=== PATIENT | male | born 1995 | race Caucasian/White ===

== ENCOUNTER 2018-05-17 08:26 | Day surgery (SDC) | payer BC, OTHER ==
[~2018-05-17] VITALS: Ht 185.4 cm; Wt 87.1 kg
[2018-05-17] VITALS (7 sets, daily range): BP systolic 135–150; BP diastolic 79–90
--- NOTE | ~2018-05-17 | O ---
[facility] [address] OPERATIVE REPORT Name: PHYLICIA REYES Room #: 150-5 [facility]..#: [id number] Admission: 05/17/18 Attend Phys: Juan Miguel Thomas MD Discharge: Date of : 89 Report #: [id number] THIS REPORT FOR: //name// CC: Juan Miguel Shields MD DATE OF SERVICE: 05/17/2018 PREOPERATIVE DIAGNOSES: Cholecystitis with cholelithiasis. POSTOPERATIVE DIAGNOSES: Cholecystitis with cholelithiasis. PROCEDURES PERFORMED: Laparoscopic cholecystectomy with cholangiogram. SURGEON: Juan Miguel Thomas MD. ANESTHESIA: General anesthesia. COMPLICATIONS: None. ESTIMATED BLOOD LOSS: 5 mL. FINDINGS: The gallbladder had adhesions over it, consistent with chronic inflammation. The gallbladder was elongated particularly in the proximal gallbladder. This accommodated for the large amount of stones that were in the gallbladder. The common bile duct was seen on cholangiogram. There was no filling defect in the common duct. Initial air bubble was flushed through. There was contrast that extravasated at the cannulation site. I was not able to get a very good seal. This led to good filling of the common duct, but not much dye spilled into the duodenum. No harm to the cholangiogram catheter identified in the cystic duct, no harm to the common duct. PROCEDURE NOTE: With the patient under general anesthesia, abdomen was prepped and draped in sterile fashion. IV antibiotic was administered. Timeout was performed. 0.25% Marcaine was used to anesthetize the skin infraumbilically. A curvilinear incision was made infraumbilically. Fascia was identified. Fascia was then grasped with hemostats and lifted anteriorly. The fascia was opened under visualization, 0 Vicryl suture placed on the fascia for retraction. With the fascia opened, 0 Vicryl stay suture placed on the fascia edges. The Veress needle was then placed through the peritoneum. Abdominal cavity was insufflated by CO2. After creating pneumoperitoneum, an 11-mm trocar was placed under visualization. Abdominal contents appeared normal. No inguinal hernia. The tip of the appendix was seen and noted to be normal. The two 5-mm trocars were placed in right lower quadrant, another 5 mm trocar in right epigastrium. The patient was placed in the reverse Trendelenburg position, right side tilted up. [address] [address] OPERATIVE REPORT Name: PHYLICIA REYES [id number]: 05/17/18 Attend Phys: Juan Miguel Thomas MD Discharge: Date of : 89 Report #: [id number] The patient's gallbladder was grasped. There is quite a bit of adhesion on the ventral surface of the gallbladder. These adhesions were taken down. When I thought I reached the bottom of the gallbladder, the gallbladder did extend more posteriorly in a pouch. The cystic duct was actually more superficial than this deeper pouch of the gallbladder. This pouch was grasped and then able to be straightened out. The cystic duct was then dissected free. The cystic duct is pretty normal size. Once the cystic duct was free and isolated, clip was placed in junction of cystic duct to the gallbladder. Opening was made in the cystic duct. Cystic duct was milked and there was no stone in the duct. Cholangiogram catheter was placed. I did have difficulty getting the cholangiogram catheter to go in very far likely because of folding in the cystic duct, valves and folds in the cystic duct. A clip was placed to hold the catheter in place. Fluoroscopic cholangiogram was obtained. Initial run, I thought there is an air bubble filling defect that moved and eventually flushed out. I did flush more saline in it, reinject it. Common bile duct filled out pretty well. I did not see any filling defect at this time. Initial run did show flow into the duodenum. Because of the difficulty getting a good seal at the catheter cannulation site, there is quite a bit of dye that extravasated laterally. The cholangiogram catheter was then completed. The catheter was removed. The proximal cystic duct was then clipped x 2 and then divided. There was a strand of tissue that I clipped and then divided. The artery was found underneath this. This is the main artery. This was isolated, clipped x 2 proximally, 1 distally and then divided. There is a small branch posteriorly that I clipped once, divided it with cautery and then, the gallbladder was free from the liver bed. Gallbladder was placed in specimen bag. The bag was pulled through the infraumbilical fascia defect. I did enlarge it to get the part of the gallbladder up into the wound. The gallbladder was opened and a very small amount of bile was suctioned out. Multiple stones were retrieved with Allis clamp, placing into the gallbladder lumen pulling the stones out. Once majority of the gallstones were pulled out, the gallbladder then came out. The bag was then removed. The 11-mm trocar was then replaced. The CO2 was placed. The liver bed was checked, hemostasis excellent, the clips were intact. No bleeding was identified. Initially taking down the adhesion, there was small oozing during the dissection. This area was dry. Irrigation was aspirated out. Trocars then removed. CO2 was evacuated as much as possible. The fascia defect was below the umbilicus, was closed with [id number] 0 Vicryl x 2. Skin was irrigated. Skin was closed with 5-0 PDS. Steri-Strip, Band-Aids applied. The patient tolerated the procedure well. By: [id number] Juan Miguel Thomas MD /nt
--- NOTE | ~2018-05-17 | PATH ---
[facility] [address] [place] [address] PATHOLOGY RPT PROCEDURE Name: PHYLICIA REYES Room #: [place] [facility] [place].#: [id number] Admission: 05/17/18 Date of : 89 Discharge: 05/18/18 Report #: [id number] Path Case #: [id number] [facility] Accession Number: [id number] . 01 Material submitted: . GALLBLADDER . 01 Clinical history: . Cholecystitis with cholelithiasis . 02 Diagnosis: Gallbladder "gallbladder cholecystectomy": - Moderate chronic cholecystitis with cholelithiasis. (SHA:[facility]; 05/20/2018) QTP/05/20/2018 . 02 Electronically signed: . Dago Bagley MD, Pathologist NPI- [id number] . 01 Gross description: . Received in formalin labeled "Phylicia Reyes, gallbladder," is a previously opened gallbladder measuring 9.5 x 3.6 x 1.0 cm in greatest dimensions. The serosal surface is smooth to shaggy, dusky forrester-gonzales and partially fibroadipose-covered in appearance. The mucosa is shaggy and dark gonzales-brown in appearance, measuring 0.1 cm thick. No lesions or polyps are noted grossly. Calculi are present within the specimen container that are multifaceted and yellow-forrester in appearance, ranging from 0.3 to 1.6 cm in maximum dimension. The specimen is submitted representatively in cassette A1, to include the infundibulum, body and fundus. ([facility]; 05/19/2018) XDC/XDC . 02 Pathologist provided ICD-10: K80.10 . 02 CPT . 385115 Performed at: [address], [place] [id number] MD Yfn Charles MD Phone: [phone] Performed at: [address] [id number] MD Alycia Berger MD Phone: [phone]
[~2018-05-17 08:26] MED LIST: AMOXICILLIN/POTASSIU; IBUPROFEN 600600 M1 PO; NASONEX17 GM; SOLODYN45 MG
[2018-05-18 04:31] VITALS: BP 133/60
[2018-05-18 08:00] VITALS: BP 142/75
[2018-05-18] MEDS ORDERED: NORCO 5-325 TA1 EACH PO (12:09)
[2018-05-18 12:26] VITALS: BP 142/75
== END 2018-05-18 13:05 | disposition home or self-care (01) ==
LOC: OR 08:26 → TBA 08:26 → 4W 16:04 → OR 05-18 13:05
DX: K80.10 Calculus of gallbladder with chronic cholecystitis without obstruction (principal)
CPT/HCPCS: 10047; 50010; 50101; 50411; 50555; 50558; 51489; 51687; 53307; 53310; 53312; 55245; 55317; 56462; 56525; 56526; 62110; 62900; 70005